=== PATIENT | female | born 1945 | race Caucasian/White ===

== ENCOUNTER 2016-11-30 16:22 | Inpatient (IN) | payer OTHER, MEDICARE ==
[~2016-11-30] VITALS: Ht 157.5 cm; Wt 69.0 kg
[~2016-11-30 16:22] MED LIST: CEPH500C3 PO; CYCL-36 PO; DIPH2%T PO; GLUCTAB PO; LEVO112T2 PO; LISI10TA PO; OMEP20TA PO; TRAM50 PO
[2016-11-30 16:30] VITALS: BP 93/57; PULSE 112; RESP 24; O2SAT 95
[2016-11-30] MEDS ORDERED: SODIUM CHLOR 0.9% 1000 ML INJ 1,000 ML IV SCH (16:48)
[2016-11-30 16:50] VITALS: RESP 18; O2SAT 97
[2016-11-30] MEDS ORDERED: SODIUM CHLORIDE 0.9% FLUSH 5 ML FLUSH IVF PRN (17:00)
--- NOTE | 2016-11-30 17:03 | PD ---
HPI Chief Complaint: generalized weakness Time Seen by Provider: 16:30 Travel History International Travel<30 days: No Contact w/Intl Traveler<30days: No Traveled to known affect area: No History of Present Illness HPI The patient is a 71-year-old female who presents to the emergency department for generalized weakness and occasional altered mental status. The daughter and stepson state that the patient has had decreasing appetite over the last several months and has fallen several times in the last several months. They then state that the patient developed occasional altered mental status. The patient was seen by her primary physician, Dr. Kim, one week ago and had outpatient laboratory evaluation and UA performed. The patient was placed on Bactrim for possible underlying bladder infection. The patient took a dose on , Friday, and a dose today, however, continues to have generalized weakness and altered mental status. The family member states that the altered mental status is intermittent and is currently resolved. The patient does complain of decreased appetite over the last several months but denies any acute abdominal pain. She does complain of occasional nausea but denies any vomiting, diarrhea, or dysuria. The patient does use a walker and wheelchair at home, and also lives with her at home. PFSH Past Medical History Arthritis: Yes (RA/OSTEO) Asthma: No Blood Disorders: No Heart Rhythm Problems: No Cancer: No Cardiovascular Problems: Yes High Cholesterol: No Chemotherapy: Yes Chest Pain: No Congestive Heart Failure: No COPD: Yes Diabetes: No Deep Vein Thrombosis: Yes Endocrine: Yes Gastrointestinal Disorders: Yes Genitourinary: No Hiatal Hernia: Yes Hypertension: Yes Immune Disorder: No Implanted Vascular Access Dvce: Yes Musculoskeletal: Yes Neurologic: No Psychiatric: No Reproductive: No Respiratory: Yes Sleep Apnea: No Thyroid Disease: Yes Past Surgical History Body Medical Devices: SILICONE UTERINE SLING, PROSTETIC BARON LENS' Eye Surgery: Yes (CATARACT) Gynecologic Surgery: Yes (UTERUS PROLAPSE) Other Surgery: Yes (SKIN ON VAGINA INFECTION ) Social History Alcohol Use: Yes (COUPLE GLASSES A DAY) Tobacco Use: No (QUIT 16 YEARS AGO) Substance Use: No Allergies-Medications (Allergen,Severity, Reaction): Coded Allergies: Heparin (Verified Allergy, Severe, Hallucinations, 07/14/16) Latex (Verified Allergy, Severe, hives, 07/14/16) Baclofen (Verified Allergy, Intermediate, RASH, 11/30/16) Reported Meds & Prescriptions Reported Meds & Active Scripts Active Reported Omeprazole 20 Mg Tab 20 Mg PO DAILY Synthroid (Levothyroxine Sodium) 112 Mcg Tab 112 Mcg PO DAILY Flexeril (Cyclobenzaprine HCl) 5 Mg Tab 5 Mg PO TID Tramadol (Tramadol HCl) 50 Mg Tab 50 Mg PO Q8H PRN Review of Systems Except as stated in HPI: all other systems reviewed are Neg General / Constitutional: No: Fever HENT: No: Lightheadedness Cardiovascular: No: Chest Pain or Discomfort Respiratory: No: Shortness of Breath Gastrointestinal: Positive: Nausea, No: Vomiting, Diarrhea, Abdominal Pain Genitourinary: No: Dysuria Musculoskeletal: Positive: Weakness Neurologic: Positive: Weakness Psychiatric: No: Substance Abuse Physical Exam Narrative GENERAL: Awake, alert, pleasant 71-year-old female who appears her stated age and is in no acute respiratory distress. SKIN: Warm and dry. HEAD: Atraumatic. Normocephalic. EYES: Pupils equal and round. Sunken orbits bilaterally. ENT: No nasal bleeding or discharge. Dry mucous membranes. NECK: Trachea midline. No JVD. CARDIOVASCULAR: Regular, tachycardic with a heart rate of 110. RESPIRATORY: No accessory muscle use. Clear to auscultation. Breath sounds equal bilaterally. GASTROINTESTINAL: Abdomen soft, non-tender, nondistended. No rebound tenderness. MUSCULOSKELETAL: Superficial varicosities lower extremities bilateral. NEUROLOGICAL: Awake and alert. No obvious cranial nerve deficits. Motor grossly within normal limits. Normal speech. Patient is oriented to person, place, month, and pattern filer, however, she had difficulty recalling the year. PSYCHIATRIC: Appropriate mood and affect; insight and judgment normal. Data Data Last Documented VS Vital Signs Date Time Temp Pulse Resp B/P Pulse Ox O2 Delivery O2 Flow Rate FiO2 11/30/16 18:02 92 18 96/52 97 Room Air Orders Electrocardiogram (11/30/16 16:48) Complete Blood Count With Diff (11/30/16 16:48) Comprehensive Metabolic Panel (11/30/16 16:48) Creatine Kinase (Cpk) (11/30/16 16:48) Troponin I (11/30/16 16:48) Thyroid Stimulating Hormone (11/30/16 16:48) Lactic Acid Sepsis Protocol (11/30/16 16:48) Urinalysis - C+S If Indicated (11/30/16 16:48) Blood Culture (11/30/16 16:48) Chest, Single Ap (11/30/16 16:48) Ct Brain W/O Iv Contrast(Rout) (11/30/16 16:48) Blood Glucose (11/30/16 16:48) Ecg Monitoring (11/30/16 16:48) Iv Access Insert/Monitor (11/30/16 16:48) Cath For Specimen (11/30/16 16:48) Oximetry (11/30/16 16:48) Sodium Chloride 0.9% Flush (Ns Flush) (11/30/16 17:00) Sodium Chlor 0.9% 1000 Ml Inj (Ns 1000 M (11/30/16 16:48) Sodium Chlorid 0.9% 500 Ml Inj (Ns 500 M (11/30/16 18:00) Us Abdomen Gallbladder (11/30/16 ) Admit Order (Ed Use Only) (11/30/16 18:48) Labs Laboratory Tests Test 11/30/16 17:00 White Blood Count 8.4 TH/MM3 Red Blood Count 3.71 MIL/MM3 Hemoglobin 12.8 GM/DL Hematocrit 36.0 % Mean Corpuscular Volume 97.0 FL Mean Corpuscular Hemoglobin 34.6 PG Mean Corpuscular Hemoglobin 35.7 % Concent Red Cell Distribution Width 13.6 % Platelet Count 247 TH/MM3 Mean Platelet Volume 8.5 FL Neutrophils (%) (Auto) 77.5 % Lymphocytes (%) (Auto) 17.6 % Monocytes (%) (Auto) 3.9 % Eosinophils (%) (Auto) 0.8 % Basophils (%) (Auto) 0.2 % Neutrophils # (Auto) 6.5 TH/MM3 Lymphocytes # (Auto) 1.5 TH/MM3 Monocytes # (Auto) 0.3 TH/MM3 Eosinophils # (Auto) 0.1 TH/MM3 Basophils # (Auto) 0.0 TH/MM3 CBC Comment DIFF FINAL Differential Comment Urine Color YELLOW Urine Turbidity CLEAR Urine pH 5.5 Urine Specific [place] 1.015 Urine Protein NEG mg/dL Urine Glucose (UA) NEG mg/dL Urine Ketones NEG mg/dL Urine Occult Blood NEG Urine Nitrite NEG Urine Bilirubin NEG Urine Urobilinogen 2.0 MG/DL Urine Leukocyte Esterase NEG Urine RBC LESS THAN 1 /hpf Urine WBC 1 /hpf Urine Hyaline Casts 1 /lpf Urine Mucus FEW /lpf Microscopic Urinalysis Comment CATH-CULT NOT IND Sodium Level 130 MEQ/L Potassium Level 4.1 MEQ/L Chloride Level 97 MEQ/L Carbon Dioxide Level 23.6 MEQ/L Anion Gap 9 MEQ/L Blood Urea Nitrogen 64 MG/DL Creatinine 2.01 MG/DL Estimat Glomerular Filtration 24 ML/MIN Rate Random Glucose 96 MG/DL Lactic Acid Level 2.0 mmol/L Calcium Level 10.8 MG/DL Total Bilirubin 1.3 MG/DL Aspartate Amino Transf 256 U/L (AST/SGOT) Alanine Aminotransferase 166 U/L (ALT/SGPT) Alkaline Phosphatase 324 U/L Total Creatine Kinase 134 U/L Troponin I LESS THAN 0.02 NG/ML Total Protein 6.6 GM/DL Albumin 3.0 GM/DL Thyroid Stimulating Hormone 1.960 uIU/ML 3rd Gen [facility] Medical Decision Making Medical Screen Exam Complete: Yes Emergency Medical Condition: Yes Medical Record Reviewed: Yes Interpretation(s) EKG reveals sinus tachycardia with a rate of 111. Inverted T-wave noted in lead 3. Last Impressions Chest X-Ray 11/30/16 1648 Signed Impressions: Service Date/Time: Wednesday, November 30, 2016 17:00 - CONCLUSION: 1. Stable basilar lung scarring. No significant effusion. No pneumothorax. Cholo Mejia MD CT of the head reveals no acute intracranial abnormalities. Laboratory Tests Test 11/30/16 17:00 White Blood Count 8.4 TH/MM3 Red Blood Count 3.71 MIL/MM3 Hemoglobin 12.8 GM/DL Hematocrit 36.0 % Mean Corpuscular Volume 97.0 FL Mean Corpuscular Hemoglobin 34.6 PG Mean Corpuscular Hemoglobin 35.7 % Concent Red Cell Distribution Width 13.6 % Platelet Count 247 TH/MM3 Mean Platelet Volume 8.5 FL Neutrophils (%) (Auto) 77.5 % Lymphocytes (%) (Auto) 17.6 % Monocytes (%) (Auto) 3.9 % Eosinophils (%) (Auto) 0.8 % Basophils (%) (Auto) 0.2 % Neutrophils # (Auto) 6.5 TH/MM3 Lymphocytes # (Auto) 1.5 TH/MM3 Monocytes # (Auto) 0.3 TH/MM3 Eosinophils # (Auto) 0.1 TH/MM3 Basophils # (Auto) 0.0 TH/MM3 CBC Comment DIFF FINAL Differential Comment Urine Color YELLOW Urine Turbidity CLEAR Urine pH 5.5 Urine Specific [place] 1.015 Urine Protein NEG mg/dL Urine Glucose (UA) NEG mg/dL Urine Ketones NEG mg/dL Urine Occult Blood NEG Urine Nitrite NEG Urine Bilirubin NEG Urine Urobilinogen 2.0 MG/DL Urine Leukocyte Esterase NEG Urine RBC LESS THAN 1 /hpf Urine WBC 1 /hpf Urine Hyaline Casts 1 /lpf Urine Mucus FEW /lpf Microscopic Urinalysis Comment CATH-CULT NOT IND Sodium Level 130 MEQ/L Potassium Level 4.1 MEQ/L Chloride Level 97 MEQ/L Carbon Dioxide Level 23.6 MEQ/L Anion Gap 9 MEQ/L Blood Urea Nitrogen 64 MG/DL Creatinine 2.01 MG/DL Estimat Glomerular Filtration 24 ML/MIN Rate Random Glucose 96 MG/DL Lactic Acid Level 2.0 mmol/L Calcium Level 10.8 MG/DL Total Bilirubin 1.3 MG/DL Aspartate Amino Transf 256 U/L (AST/SGOT) Alanine Aminotransferase 166 U/L (ALT/SGPT) Alkaline Phosphatase 324 U/L Total Creatine Kinase 134 U/L Troponin I LESS THAN 0.02 NG/ML Total Protein 6.6 GM/DL Albumin 3.0 GM/DL Thyroid Stimulating Hormone 1.960 uIU/ML 3rd Gen Differential Diagnosis Differential diagnosis includes delirium, UTI, pneumonia, subdural hemorrhage, hygroma, hyponatremia, hypocalcemia, deconditioning, ACS. Narrative Course IV was established, labs were drawn and sent, and the patient was placed on cardiac telemetry monitoring and continuous pulse oximetry monitoring. EKG was ordered and interpreted. Chest x-ray was ordered. CT the brain was ordered to rule out subdural/I hygroma. The patient was administered IV fluids. Catheter UA was sent to lab. Lactic acid and blood culture were sent to lab. Patient's lactic acid is normal at 2.0, white count is normal. Creatinine is elevated at 2.01, EMR reveals the one from November 2015 was normal. Patient's LFTs are also elevated, patient still has her gallbladder and complains of intermittent abdominal pain with decreased appetite. Therefore, formal ultrasound of the gallbladder was ordered. The patient was administered 1.5 L of fluid, heart rate improved from 110 down to 92, however, blood pressure maintained a systolic in the 90s and diastolic in the 60s. The patient was mentating normal and was sitting upright and conversational. I do not believe the patient has septic shock. UA is negative, however, patient has been treated with Bactrim for the last 3 days. Patient may have dehydration versus sepsis, however, no obvious source of infection. Therefore, no initial antibiotics were ordered. The patient has [employer] and is followed by Dr. Kim, therefore, [facility] were paged for admission. Patient will need to just his IV fluid rehydration, repeat creatinine and LFTs, an ultrasound of the gallbladder. I discussed the findings with the patient and family at bedside who are comfortable with this plan of care and disposition. I discussed the patient with Dr. Gallardo who agrees with admission/observation, however, request noncontrast CT the abdomen and pelvis. Therefore, CT the abdomen and pelvis was ordered. The oncoming physician will follow-up in regards to the CT if there are any abnormalities. Physician Communication Physician Communication The patient has [employer], therefore, [facility] were paged for 23 hour observation at 6:15 PM. I discussed patient with Dr. Gallardo who agrees with admission. Diagnosis Primary Impression: Acute kidney injury Additional Impressions: Dehydration Elevated LFTs Admitting Information Admitting Physician Requests: Observation Condition: Stable Leandro Coates MD Nov 30, 2016 17:03
[2016-11-30] MEDS ORDERED: SYNT112T PO (17:25)
[2016-11-30] MEDS ORDERED: TRAM50TA PO (17:25)
[2016-11-30] MEDS ORDERED: CYCL5TAB PO (17:25)
[2016-11-30] MEDS ORDERED: OMEP20TA PO (17:26)
[2016-11-30 17:42] LABS: AUTOMATED NEUTROPHIL # 6.5 TH/MM3 (1.8-7.7); BASOPHIL % 0.2 % (0.0-2.0); EOSINOPHIL # 0.1 TH/MM3 (0-0.4); EOSINOPHIL % 0.8 % (0.0-4.0); HEMO FLAGS DIFF FINAL; LYMPH % 17.6 % (9.0-44.0); LYMPHOCYTE # 1.5 TH/MM3 (1.0-4.8); MEAN CORPUSCULAR HEMOGLOBIN 34.6 PG (27.0-34.0); MEAN CORPUSCULAR HGB CONC 35.7 % (32.0-36.0); MONO % 3.9 % (0.0-8.0); NEUT % 77.5 % (16.0-70.0); PLATELET COUNT 247 TH/MM3 (150-450); RED BLOOD COUNT 3.71 MIL/MM3 (4.00-5.30); RED CELL DISTRIBUTION WIDTH 13.6 % (11.6-17.2); WHITE BLOOD COUNT 8.4 TH/MM3 (4.0-11.0)
--- NOTE | 2016-11-30 17:48 | RADRPT ---
EXAM DATE/TIME: 11/30/2016 17:00 [facility] COMPARISON: CHEST SINGLE AP, December 18, 2015, 12:57. INDICATIONS : Syncope. MEDICAL HISTORY : Chronic obstructive pulmonary disease. Hypertension. deep vein thrombosis SURGICAL HISTORY : None. ENCOUNTER: Initial ACUITY: 1 day PAIN SCORE: Non-responsive. LOCATION: Bilateral chest FINDINGS: Colonic interposed between right hemidiaphragm and liver, stable. No new infiltrate. Stable basilar s carring in the lungs. No pneumothorax. Heart size within normal limits. CONCLUSION: 1. Stable basilar lung scarring. No significant effusion. No pneumothorax. Cholo Mejia MD on November 30, 2016 at 17:45 Board Certified Radiologist. This report was verified electronically.
[2016-11-30 17:53] LABS: BLOOD, URINE NEG (NEG); COMMENT (UR) CATH-CULT NOT IND; CULTURE IF INDICATED CATH CULTURE NOT IND; GLUCOSE,URINE NEG (NEG); HYALINE CAST, URINE 1 /lpf (RARE); KETONE, URINE NEG (NEG); MUCUS URINE FEW /lpf (OCC); NITRITE,URINE NEG (NEG); PH, URINE 5.5 (5.0-8.5); URINE COLOR YELLOW (YELLW/STRAW)
--- NOTE | 2016-11-30 17:53 | RADRPT ---
EXAM DATE/TIME: 11/30/2016 17:31 [facility] COMPARISON: No previous studies available for comparison. INDICATIONS : Confusion and weakness. RADIATION DOSE: 56.35 CTDIvol (mGy) MEDICAL HISTORY : Hypertension. Deep venous thrombosis. Chronic obstructive pulmonary disease. SURGICAL HISTORY : None. ENCOUNTER: Initial ACUITY: 1 day PAIN SCALE: Non-responsive LOCATION: cranial TECHNIQUE: Multiple contiguous axial images were obtained of the head. Using automated exposure control and adj ustment of the mA and/or kV according to patient size, radiation dose was kept as low as reasonably a chievable to obtain optimal diagnostic quality images. FINDINGS: CEREBRUM: The ventricles are normal for age. No evidence of midline shift, mass lesion, hemorrhage or acute in farction. No extra-axial fluid collections are seen. POSTERIOR FOSSA: The cerebellum and brainstem are intact. The 4th ventricle is midline. The cerebellopontine angle i s unremarkable. EXTRACRANIAL: The visualized portion of the orbits is intact. SKULL: The calvaria is intact. No evidence of skull fracture. CONCLUSION: 1. No acute intracranial abnormalities. Cholo Mejia MD on November 30, 2016 at 17:51 Board Certified Radiologist. This report was verified electronically.
[2016-11-30 17:57] LABS: ANION GAP 9 MEQ/L (5-15); AST (GOT) 256 U/L (15-37); BICARBONATE 23.6 MEQ/L (21.0-32.0); BLOOD UREA NITROGEN 64 MG/DL (7-18); CHLORIDE 97 MEQ/L (98-107); GLOMERULAR FILTRATION RATE 24 ML/MIN (>89); POTASSIUM 4.1 MEQ/L (3.5-5.1); SODIUM (NA) 130 MEQ/L (136-145)
[2016-11-30] MEDS ORDERED: SODIUM CHLORID 0.9% 500 ML INJ 500 ML IV ONE (18:00)
[2016-11-30 18:02] VITALS: BP 96/52; PULSE 92; RESP 18; O2SAT 97
[2016-11-30 18:07] LABS: ALKALINE PHOSPHATASE 324 U/L (45-117); ALT (GPT) 166 U/L (10-53); CREATINE KINASE 134 U/L (26-192); TOTAL BILIRUBIN ADULT 1.3 MG/DL (0.2-1.0)
--- NOTE | 2016-11-30 19:10 | HHI.HP ---
HPI Service [facility] Primary Care Physician Nikhil Kim, DO Admission Diagnosis acute kidney injury, dehydration, elevated liver function test Diagnoses: (1) Generalized weakness Diagnosis: Principal (2) BEVERLY (acute kidney injury) Diagnosis: Principal (3) Dehydration Diagnosis: Principal (4) UTI (urinary tract infection) Diagnosis: Principal (5) Elevated LFTs Diagnosis: Principal Travel History International Travel<30 Days: No Contact w/Intl Traveler <30 Da: No Traveled to Known Affected Are: No History of Present Illness This is a 71-year-old female with a PMH of Rheumatoid Arthritis, Osteoporosis and Hypothyroidism who was brought to the ER secondary to generalized weakness and intermittent confusion noted by Daughter. Per Daughter pt was seen by PCP for weakness and recurrent falls, had outpatient lab work w/ U/a + for UTI and started on Bactrim. Per Daughter, pt started antibiotics on w/ minimal improvement in weakness and confusion. Daughter notes decreased PO intake over the last 1-2 months. On arrival, BP 93/57, HR 112, O2 sat 95% on RA , Afebrile. Currently BP 96/52, HR 92. Na 130. Creatinine 2.01, previously 0.63 on 12/18/15. LFTs elevated, AST 256, ALT 166, ALP 324. Total bili 1.3. Calcium 10.8. Troponin negative. Lactic Acid normal. UA negative. CXR was stable basilar lung scarring no acute findings. CT Head with no acute findings. Gallbladder US and CT Abd/Pelvis ordered in ER, currently pending. S /p Blood Cultures. Review of Systems Except as stated in HPI: all other systems reviewed are Neg ROS: 14 point review of systems otherwise negative. Past Family Social History Past Medical History PMH: Rheumatoid Arthritis, Osteoporosis and Hypothyroidism Past Surgical History PAST SURGICAL HISTORY: Uterine Sling, Cataract Surgery Allergies: Coded Allergies: Heparin (Verified Allergy, Severe, Hallucinations, 07/14/16) Latex (Verified Allergy, Severe, hives, 07/14/16) Baclofen (Verified Allergy, Intermediate, RASH, 11/30/16) Family History PAST FAMILY HISTORY: Reviewed. No h/o DM or CAD Social History PAST SOCIAL HISTORY: Drinks daily, few glasses. Negative for tobacco or drugs. Physical Exam Vital Signs Vital Signs Date Time Temp Pulse Resp B/P Pulse Ox O2 Delivery O2 Flow Rate FiO2 11/30/16 18:02 92 18 96/52 97 Room Air 11/30/16 16:50 18 97 Room Air 11/30/16 16:45 17 97 Room Air 11/30/16 16:30 112 24 93/57 95 Room Air Physical Exam PE: GENERAL: Elderly female in no acute distress. HEENT: PERRLA, EOMI. No scleral icterus or conjunctival pallor. No lid lag or facial droop. Dry mucous membranes. CARDIOVASCULAR: Regular rate and rhythm. No obvious murmurs to auscultation. No chest tenderness to palpation. RESPIRATORY: No obvious rhonchi or wheezing. Clear to auscultation. Breath sounds equal bilaterally. GASTROINTESTINAL: Abdomen soft, non-tender, nondistended. BS normal. MUSCULOSKELETAL: Extremities without clubbing, cyanosis, or edema. No obvious deformities. NEUROLOGICAL: Awake, alert and oriented to person, place but cannot remember year. No focal neurologic deficits. Moving both upper and lower extremities spontaneously. Laboratory Laboratory Tests Test 11/30/16 17:00 White Blood Count 8.4 Red Blood Count 3.71 Hemoglobin 12.8 Hematocrit 36.0 Mean Corpuscular Volume 97.0 Mean Corpuscular Hemoglobin 34.6 Mean Corpuscular Hemoglobin 35.7 Concent Red Cell Distribution Width 13.6 Platelet Count 247 Mean Platelet Volume 8.5 Neutrophils (%) (Auto) 77.5 Lymphocytes (%) (Auto) 17.6 Monocytes (%) (Auto) 3.9 Eosinophils (%) (Auto) 0.8 Basophils (%) (Auto) 0.2 Neutrophils # (Auto) 6.5 Lymphocytes # (Auto) 1.5 Monocytes # (Auto) 0.3 Eosinophils # (Auto) 0.1 Basophils # (Auto) 0.0 CBC Comment DIFF FINAL Differential Comment Urine Color YELLOW Urine Turbidity CLEAR Urine pH 5.5 Urine Specific [place] 1.015 Urine Protein NEG Urine Glucose (UA) NEG Urine Ketones NEG Urine Occult Blood NEG Urine Nitrite NEG Urine Bilirubin NEG Urine Urobilinogen 2.0 Urine Leukocyte Esterase NEG Urine RBC LESS THAN 1 Urine WBC 1 Urine Hyaline Casts 1 Urine Mucus FEW Microscopic Urinalysis Comment CATH-CULT NOT IND Sodium Level 130 Potassium Level 4.1 Chloride Level 97 Carbon Dioxide Level 23.6 Anion Gap 9 Blood Urea Nitrogen 64 Creatinine 2.01 Estimat Glomerular Filtration 24 Rate Random Glucose 96 Lactic Acid Level 2.0 Calcium Level 10.8 Total Bilirubin 1.3 Aspartate Amino Transf 256 (AST/SGOT) Alanine Aminotransferase 166 (ALT/SGPT) Alkaline Phosphatase 324 Total Creatine Kinase 134 Troponin I LESS THAN 0.02 Total Protein 6.6 Albumin 3.0 Thyroid Stimulating Hormone 1.960 3rd Gen Date/Time Procedure Status Source Growth 11/30/16 17:00 Aerobic Blood Culture Received Blood Peripheral Pending 11/30/16 17:00 Anaerobic Blood Culture Received Blood Peripheral Pending Result Diagram: 11/30/16 1700 11/30/16 170 Assessment and Plan Problem List: (1) Generalized weakness ICD Code: R53.1 Status: Acute (2) BEVERLY (acute kidney injury) ICD Code: N17.9 Status: Acute (3) Dehydration ICD Code: E86.0 Status: Acute (4) Hypercalcemia ICD Code: E83.52 Status: Acute (5) UTI (urinary tract infection) ICD Code: N39.0 Status: Acute (6) Elevated LFTs ICD Code: R94.5 Status: Acute Assessment and Plan A/P: 1. BEVERLY: Creatinine 2.01, previously 0.63 on 12/18/15, U/a negative for UTI, however on Bactrim since per PCP for UTI. IVF for hydration, repeat labs in am. 2. UTI: U/a currently negative, however possibly due to recent antibiotic use , s/p Blood Cultures in ER, will start on Cipro IV for empiric treatment of persistent UTI despite negative U/a. 3. Dehydration: Secondary to above, decreased PO intake per Daughter. +dry mucous membranes on exam, BEVERLY, hypercalcemia. IVF for hydration. Repeat labs in am. 4. Hypercalcemia: Ca 10.8, secondary to above. IVF, repeat Ca in am. 5. Generalized Weakness: w/ recurrent falls x1-2 months per family, possibly related to underlying UTI/infection. Consult PT for shaan/tx. 6. Elevated LFTs: AST 256, ALT 166, ALP 324, Total Bili 1.3. Gallbladder US and CT Abd/Pelvis ordered in ER, currently pending. Will follow up on results once available. 7. DVT Prophylaxis: SCD/Teds. 8. Social work for d/c planning as needed. 9. Case discussed w/ ER physician at length. Physician Certification 2 Midnight Certification Type: Admission for Inpatient Services Order for Inpatient Services The services are ordered in accordance with Medicare regulations or non- Medicare payer requirements, as applicable. In the case of services not specified as inpatient-only, they are appropriately provided as inpatient services in accordance with the 2-midnight benchmark. Estimated LOS (days): 2 days is the estimated time the patient will need to remain in the hospital, assuming treatment plan goals are met and no additional complications. Post-Hospital Plan: Not yet determined Morena Rea MD Nov 30, 2016 19:10
[2016-11-30] MEDS: SODIUM CHLOR 0.9% 1000 ML INJ 1,000 ML IV SCH ×2 (19:12→22:06)
[2016-11-30] MEDS ORDERED: SODIUM CHLORIDE 0.9% FLUSH 5 ML FLUSH FLUSH PRN ×2 (19:15)
[2016-11-30] MEDS ORDERED: ACETAMINOPHEN 325 MG TAB PO PRN ×2 (19:15)
[2016-11-30] MEDS ORDERED: ONDANSETRON HCL 4 MG/2 ML VIAL IVP PRN (19:15)
[2016-11-30] MEDS ORDERED: BISACODYL 10 MG SUPP PR PRN (19:15)
[2016-11-30] MEDS: ACETAMINOPHEN/HYDROcodone 325 MG/5 MG TAB PO PRN (19:42)
--- NOTE | 2016-11-30 20:11 | RADRPT ---
EXAM DATE/TIME: 11/30/2016 19:52 [facility] COMPARISON: No previous studies available for comparison. INDICATIONS : Nausea. ORAL CONTRAST: No oral contrast ingested. RADIATION DOSE: 12.40 CTDIvol (mGy) MEDICAL HISTORY : Cardiovascular disease. Hypertension. Deep venous thrombosis.COPD. Hiatal hernia. SURGICAL HISTORY : Uterus prolapse surgery. ENCOUNTER: Initial ACUITY: 1 day PAIN SCALE: 0/10 LOCATION: abdomen TECHNIQUE: Volumetric scanning of the abdomen and pelvis was performed. Using automated exposure control and ad justment of the mA and/or kV according to patient size, radiation dose was kept as low as reasonably achievable to obtain optimal diagnostic quality images. FINDINGS: There is subsegmental airspace disease at the right lung base, incompletely evaluated. Liver is enlarged to 26 cm in length. Colon is interposed between the right hemidiaphragm and liver. Spleen contains calcified granulomata. No focal abnormality is seen in the adrenals, kidneys or pancr eas. There is no free fluid. No free air. No bowel obstruction. Pessary present inferiorly. No acute bony abnormalities. Previous left-sided pelvic fractures, healed. CONCLUSION: 1. No acute findings within the abdomen and pelvis. Liver enlarged to 26 cm in length. Pessary present in the lower pelvis. Remote healed left pelvic fra ctures. Remote granulomatous disease. Cholo Mejia MD on November 30, 2016 at 20:01 Board Certified Radiologist. This report was verified electronically.
--- NOTE | 2016-11-30 20:23 | RADRPT ---
EXAM DATE/TIME: 11/30/2016 18:56 [facility] COMPARISON: No previous studies available for comparison. INDICATIONS : Nausea and vomiting. MEDICAL HISTORY : Chronic obstructive pulmonary disease. Hypertension. Deep venous thrombosis. Thyroid disease. Hiatal hernia. Rheumatoid arthritis. Chemotherapy. SURGICAL HISTORY : Uterine prolapse repair. Cataract removal. ENCOUNTER: Initial ACUITY: 1 day PAIN SCORE: 6/10 LOCATION: Right upper quadrant MEASUREMENTS: LIVER: 15.8 cm length COMMON DUCT: Non-visualized RIGHT KIDNEY: 12.0 x 5.5 x 6.2 cm FINDINGS: Liver has a heterogeneous appearance with a palpable 2.3 cm hemangioma in the right lobe. Liver is en larged. Common bile duct not clearly visualized. Gallbladder is distended with gallstones present. Ga llbladder wall is thickened up to 7 mm. Right kidney is echogenic characteristic of medical renal dis ease. No hydronephrosis. No free fluid. CONCLUSION: 1. Heterogeneous, enlarged liver characteristic of hepatocellular dysfunction or mild fatty infiltrat ion. Probable hemangioma in right lobe. Distended gallbladder with multiple gallstones and some gallbladder wall thickening. Common bile duct not clearly visualized. Cholo Mejia MD on November 30, 2016 at 20:15 Board Certified Radiologist. This report was verified electronically.
[2016-11-30] MEDS: SODIUM CHLORIDE 0.9% FLUSH 5 ML FLUSH FLUSH SCH ×2 (21:00→22:04)
[2016-11-30 21:08] VITALS: BP 95/56; PULSE 93; RESP 19; TEMP 98.2; O2SAT 98
[2016-11-30] MEDS: CIPROFLOXACIN 400 MG PREMIX 200 ML IV SCH (22:04)
[2016-12-01] VITALS (7 sets, daily range): BP systolic 92–115; BP diastolic 53–68; PULSE 71–111; RESP 17–19; TEMP 97.1–98; O2SAT 95–98
--- NOTE | 2016-12-01 00:14 | RADRPT ---
EXAM DATE/TIME: 11/30/2016 23:44 [facility] COMPARISON: CT ABDOMEN & PELVIS W/O CONTRAST, November 30, 2016, 19:52. US ABDOMEN - GALLBLADDER, November 30 017, 18:56. INDICATIONS : Increased BUN and Creatinine. MEDICAL HISTORY : Chronic obstructive pulmonary disease. Hypertension. Deep venous thrombosis. Thyroid disease. Hiatal hernia. Rheumatoid arthritis. Chemotherapy. SURGICAL HISTORY : Uterine prolapse repair. Cataract removal. ENCOUNTER: Subsequent ACUITY: 1 day PAIN SCORE: 5/10 LOCATION: Bilateral flank MEASUREMENTS: RIGHT KIDNEY: 11.3 x 5.4 x 5.3 cm LEFT KIDNEY: 11.6 x 5.9 x 6.2 cm FINDINGS: RIGHT KIDNEY: Renal cortex is normal in thickness and echotexture. No hydronephrosis, stone, or mass. LEFT KIDNEY: Renal cortex is normal in thickness and echotexture. No hydronephrosis, stone, or mass. BLADDER: Within normal limits given the degree of distension. Enlarged liver with suspected scattered masses. CONCLUSION: Ultrasound appearance of the kidneys and urinary bladder within normal limits. No obstructive uropath y or other acute abnormality demonstrated. Liver is massively enlarged and scattered nonspecific hepa tic masses are suspected. Nikhil Tim MD on December 01, 2016 at 0:09 Board Certified Radiologist. This report was verified electronically.
[2016-12-01] MEDS: SODIUM CHLOR 0.9% 1000 ML INJ 1,000 ML IV SCH ×6 (05:07→20:30)
[2016-12-01 05:56] LABS: AUTOMATED NEUTROPHIL # 5.1 TH/MM3 (1.8-7.7); BASOPHIL % 0.3 % (0.0-2.0); EOSINOPHIL # 0.1 TH/MM3 (0-0.4); EOSINOPHIL % 0.8 % (0.0-4.0); HEMATOCRIT 35.5 % (35.0-46.0); HEMO FLAGS DIFF FINAL; LYMPH % 18.5 % (9.0-44.0); LYMPHOCYTE # 1.3 TH/MM3 (1.0-4.8); MEAN CELL VOLUME 97.6 FL (80.0-100.0); MEAN CORPUSCULAR HEMOGLOBIN 33.2 PG (27.0-34.0); MONO % 5.9 % (0.0-8.0); NEUT % 74.5 % (16.0-70.0); PLATELET COUNT 224 TH/MM3 (150-450); RED BLOOD COUNT 3.64 MIL/MM3 (4.00-5.30); RED CELL DISTRIBUTION WIDTH 13.9 % (11.6-17.2); WHITE BLOOD COUNT 6.8 TH/MM3 (4.0-11.0)
[2016-12-01] MEDS: LEVOTHYROXINE SODIUM 112 MCG TAB PO SCH (06:10)
[2016-12-01 06:28] LABS: ALKALINE PHOSPHATASE 286 U/L (45-117); ALT (GPT) 143 U/L (10-53); ANION GAP 11 MEQ/L (5-15); AST (GOT) 203 U/L (15-37); BICARBONATE 22.3 MEQ/L (21.0-32.0); BLOOD UREA NITROGEN 46 MG/DL (7-18); CHLORIDE 102 MEQ/L (98-107); GLOMERULAR FILTRATION RATE 30 ML/MIN (>89); SODIUM (NA) 135 MEQ/L (136-145); TOTAL BILIRUBIN ADULT 1.6 MG/DL (0.2-1.0)
[2016-12-01] MEDS: SODIUM CHLORIDE 0.9% FLUSH 5 ML FLUSH FLUSH SCH ×4 (09:00→20:30)
[2016-12-01] MEDS: PANTOPRAZOLE SOD 20 MG DELAYED RELEASE TAB PO SCH (09:17)
--- NOTE | 2016-12-01 10:18 | HHI.PR ---
Subjective Remarks Follow up for generalized weakness, BEVERLY, elevated LFTs, UTI. The patient reports diffuse upper abdominal pain, worse at the epigastric area and RUQ, no nausea/vomiting. Had a normal BM this morning. Denies fevers/chills. She admits to generalized weakness. The patient daughter is at bedside, states the patient is minimally improved compared to yesterday but still confused at times and with significant weakness. The daughter has been talking with family and agrees the patient may need rehab placement. Currently the patient lives at home with her who is also elderly and frail. Objective Vitals Vital Signs Date Time Temp Pulse Resp B/P Pulse Ox O2 Delivery O2 Flow Rate FiO2 12/01/16 07:55 98.0 111 17 95/57 95 12/01/16 04:03 97.9 110 19 98/53 97 12/01/16 01:16 98.0 90 19 96/54 98 11/30/16 21:08 98.2 93 19 95/56 98 11/30/16 18:02 92 18 96/52 97 Room Air 11/30/16 16:50 18 97 Room Air 11/30/16 16:45 17 97 Room Air 11/30/16 16:30 112 24 93/57 95 Room Air Result Diagram: 12/01/16 0514 12/01/16 0514 Imaging Last Impressions Head CT 11/30/161647 Signed Impressions: Service Date/Time: Wednesday, November 30, 2016 17:31 - CONCLUSION: 1. No acute intracranial abnormalities. Cholo Mejia MD Chest X-Ray 11/30/168 Signed Impressions: Service Date/Time: Wednesday, November 30, 2016 17:00 - CONCLUSION: 1. Stable basilar lung scarring. No significant effusion. No pneumothorax. Cholo Mejia MD Renal Ultrasound 11/30/16 0000 Signed Impressions: Service Date/Time: Wednesday, November 30, 2016 23:44 - CONCLUSION: Ultrasound appearance of the kidneys and urinary bladder within normal limits. No obstructive uropathy or other acute abnormality demonstrated. Liver is massively enlarged and scattered nonspecific hepatic masses are suspected. Nikhil Tim MD Gall Bladder Ultrasound 11/30/16 0000 Signed Impressions: Service Date/Time: Wednesday, November 30, 2016 18:56 - CONCLUSION: 1. Heterogeneous, enlarged liver characteristic of hepatocellular dysfunction or mild fatty infiltration. Probable hemangioma in right lobe. Distended gallbladder with multiple gallstones and some gallbladder wall thickening. Common bile duct not clearly visualized. Cholo Mejia MD Abdomen/Pelvis CT 11/30/16 0000 Signed Impressions: Service Date/Time: Wednesday, November 30, 2016 19:52 - CONCLUSION: 1. No acute findings within the abdomen and pelvis. Liver enlarged to 26 cm in length. Pessary present in the lower pelvis. Remote healed left pelvic fractures. Remote granulomatous disease. Cholo Mejia MD Objective Remarks GENERAL: Well-developed elderly female patient in NAD. Pleasantly confused. SKIN: Warm and dry. HEAD: Atraumatic. Normocephalic. EYES: Pupils equal and round. No scleral icterus. No injection or drainage. ENT: No nasal bleeding or discharge. Mucous membranes slightly dry. NECK: Trachea midline. CARDIOVASCULAR: Regular rate and rhythm. No murmur appreciated. RESPIRATORY: No accessory muscle use. Clear to auscultation. Breath sounds equal bilaterally. GASTROINTESTINAL: Abdomen soft, nondistended, epigastric and RUQ TTP. Palpable liver. Normoactive bowel sounds x4. MUSCULOSKELETAL: Extremities without clubbing, cyanosis, or edema. No obvious deformities. NEUROLOGICAL: Awake and alert. No obvious cranial nerve deficits. Motor grossly within normal limits. Normal speech. PSYCHIATRIC: Appropriate mood and affect; insight and judgment fair. Medications and IVs Current Medications Medications (Trade) Dose Ordered Sig/Roland Route Start Time Stop Time Status Last Admin IV Flush 2 ml 2 ml UNSCH PRN IVF 11/30/16 17:00 (NS 1000 ml Inj) 1,000 ml @ 100 mls/hr Q10H IV 11/30/16 19:07 11/30/16 22:06 (NS Flush) 2 ml UNSCH PRN FLUSH 11/30/16 19:15 (NS Flush) 2 ml BID FLUSH 11/30/16 21:00 11/30/16 22:04 (Zofran Inj) 4 mg Q6H PRN IVP 11/30/16 19:15 (Dulcolax Supp) 10 mg DAILY PRN [place] 11/30/16 19:15 11/30/16 22:29 (Tylenol) 650 mg Q6H PRN PO 11/30/16 19:15 ([place] 5-325 Mg) 1 tab Q4H PRN PO 11/30/16 19:15 11/30/16 19:42 (Morphine Inj) 2 mg Q3H PRN IV 11/30/16 19:15 (Synthroid) 112 mcg DAILY@06 PO 12/01/16 06:00 12/01/16 06:10 Pantoprazole Sodium 20 mg 20 mg DAILY PO 12/01/16 09:00 12/01/16 09:17 (NS 1000 ml Inj) 1,000 ml @ 100 mls/hr Q10H IV 11/30/16 19:12 (NS Flush) 2 ml UNSCH PRN FLUSH 11/30/16 19:15 (NS Flush) 2 ml BID FLUSH 11/30/16 21:00 Acetaminophen 650 mg 650 mg Q4H PRN PO 11/30/16 19:15 (Cipro 400 Mg Premix) 200 ml @ 200 mls/hr Q24H IV 11/30/16 21:00 11/30/16 22:04 (Flu (Quadrivalent) Vaccine Inj) 0.5 ml ONCE ONCE IM 12/02/16 10:00 12/02/16 10:01 A/P Problem List: (1) Generalized weakness ICD Code: R53.1 Status: Acute (2) BEVERLY (acute kidney injury) ICD Code: N17.9 Status: Acute (3) Dehydration ICD Code: E86.0 Status: Acute (4) Hypercalcemia ICD Code: E83.52 Status: Acute (5) UTI (urinary tract infection) ICD Code: N39.0 Status: Acute (6) Elevated LFTs ICD Code: R94.5 Status: Acute Assessment and Plan 71-year-old female with a PMH of Rheumatoid Arthritis, Osteoporosis and Hypothyroidism who was brought to the ER secondary to generalized weakness and intermittent confusion noted by Daughter. Cholelithiasis, Elevated LFTs: with RUQ abdominal pain. Possible cholecystitis vs choledocholithiasis. Imaging and Labs Reviewed- Gall bladder US showed Distended gallbladder with multiple gallstones and some gallbladder wall thickening; CBD not clearly visualized. Total bilirubin 1.3, AST 203, ALT 143. CT abdomen with no acute findings, enlarged liver 26cm. Renal U/S showed Liver is massively enlarged and scattered nonspecific hepatic masses are suspected. -Consult general surgery, discussed with Dr. Small, may proceed with cholecystectomy later this week -Consult gastroenterology -Plan for MRCP today -Clear liquid diet -monitor LFTs BEVERLY: Creatinine 2.01, previously 0.63 on 12/18/15, U/a negative for UTI, however on Bactrim since Thurs per PCP for UTI. IVF for hydration, repeat labs show slight improvement, Cr 1.65 today. UTI, Failed Outpatient: U/a currently negative, however possibly due to recent antibiotic use, s/p Blood Cultures in ER, started on Cipro IV for empiric treatment of persistent UTI despite negative U/a. Dehydration: Secondary to above, decreased PO intake per Daughter. +dry mucous membranes on exam, BEVERLY, hypercalcemia. IVF for hydration. Repeat labs improving, continue to monitor. Hypercalcemia: Ca 10.8, secondary to above. IVF, repeat Ca 10.4 today, continue to monitor. Generalized Weakness: w/ recurrent falls x1-2 months per family, possibly related to underlying UTI/infection. Consult PT for shaan/tx, may need rehab. DVT Prophylaxis: SCD/Teds. Written by Luci Perera, acting as scribe for Dr. Jordan on 12/01/16 at 10:15. The documentation accurately reflects the work performed [id number] by me Dr. Jordan on 12/01/16 at 10:15. Luci Perera PA-C Dec 01, 2016 10:18 Zofia Jordan MD Dec 01, 2016 17:43
--- NOTE | 2016-12-01 11:28 | PD.CONS ---
HPI History of Present Illness This is a 71 year old female being seen for GI consult due to upper abdominal pain in epigastric and RUQ abdominal region. Patient is a poor historian. Per H& P, patient was initially brought to the ER by her daughter due to increased weakness and intermittent confusion. Has a history of RA, osteoporosis, and hypothyroidism. Reports she had a rectal suppository last night and had a BM this morning. Today she reports abdominal pain in RUQ. Denies blood in stool. No nausea or vomiting. No diarrhea. Abdominal CT completed, with no acute findings within the abdomen or pelvis. Liver enlarged to 26 cm in length. Gallbladder US--Distended gallbladder with multiple gallstones and some gallbladder wall thickening. CBD not clearly visualized. (Emmie Hines) PFSH Past Medical History -Rheumatoid Arthritis -Osteoporosis -Hypothyroidism Past Surgical History PAST SURGICAL HISTORY: -Uterine Sling -Cataract Surgery (Emmie Hines) Coded Allergies: Heparin (Verified Allergy, Severe, Hallucinations, 07/14/16) Latex (Verified Allergy, Severe, hives, 07/14/16) Baclofen (Verified Allergy, Intermediate, RASH, 11/30/16) Medications Current Medications Medications (Trade) Dose Ordered Sig/Roland Route PRN Reason Start Time Stop Time Status Last Admin Dose Admin IV Flush 2 ml 2 ml UNSCH PRN IVF FLUSH AFTER USING IV ACCESS 11/30/16 17:00 Sodium Chloride (NS 1000 ml Inj) 1,000 ml @ 100 mls/hr Q10H IV 11/30/16 19:07 11/30/16 22:06 IV Flush (NS Flush) 2 ml UNSCH PRN FLUSH FLUSH AFTER USING IV ACCESS 11/30/16 19:15 IV Flush (NS Flush) 2 ml BID FLUSH 11/30/16 21:00 11/30/16 22:04 Ondansetron HCl (Zofran Inj) 4 mg Q6H PRN IVP NAUSEA OR VOMITING 11/30/16 19:15 Bisacodyl (Dulcolax Supp) 10 mg DAILY PRN AR CONSTIPATION 11/30/16 19:15 11/30/16 22:29 Acetaminophen (Tylenol) 650 mg Q6H PRN PO FEVER/PAIN SCALE 1 TO 2 2/11/17 19:15 Acetaminophen/ Hydrocodone Bitart ([place] 5-325 Mg) 1 tab Q4H PRN PO PAIN SCALE 3 TO 5 11/30/16 19:15 11/30/16 19:42 Morphine Sulfate (Morphine Inj) 2 mg Q3H PRN IV Pain 6-10 11/30/16 19:15 Levothyroxine Sodium (Synthroid) 112 mcg DAILY@06 PO 12/01/16 06:00 12/01/16 06:10 Pantoprazole Sodium 20 mg 20 mg DAILY PO 12/01/16 09:00 12/01/16 09:17 Sodium Chloride (NS 1000 ml Inj) 1,000 ml @ 100 mls/hr Q10H IV 11/30/16 19:12 IV Flush (NS Flush) 2 ml UNSCH PRN FLUSH FLUSH AFTER USING IV ACCESS 11/30/16 19:15 IV Flush (NS Flush) 2 ml BID FLUSH 11/30/16 21:00 Acetaminophen 650 mg 650 mg Q4H PRN PO TEMP > 100.4 11/30/16 19:15 Ciprofloxacin/ Dextrose (Cipro 400 Mg Premix) 200 ml @ 200 mls/hr Q24H IV 11/30/16 21:00 11/30/16 22:04 Influenza Virus Vaccine (Flu (Quadrivalent) Vaccine Inj) 0.5 ml ONCE ONCE IM 12/02/16 10:00 12/02/16 10:01 Family History PAST FAMILY HISTORY: -Cholecystitis Social History PAST SOCIAL HISTORY: -ETOH daily "few glasses" -No tobacco -No illicit drug use. (Emmie Hines) Review of Systems Constitutional: COMPLAINS OF: Diaphoretic episodes, Chills Endocrine: DENIES: Polyuria Eyes: COMPLAINS OF: Photosensitivity, DENIES: Blurred vision, Double Vision Ears, nose, mouth, throat: DENIES: Hearing loss, Vertigo, Oral lesions, Throat pain, Hoarseness Respiratory: DENIES: Cough, Wheezing, Hemoptysis, Sputum production, Shortness of breath Cardiovascular: DENIES: Chest pain, Palpitations, Syncope, Lower Extremity Edema Gastrointestinal: COMPLAINS OF: Abdominal pain (RUQ, epigastric), DENIES: Black stools, Bloody stools, Constipation, Diarrhea, Nausea, Vomiting, Difficulty Swallowing, Anorexia, Heartburn, Hematemesis Genitourinary: DENIES: Urinary frequency, Urinary incontinence, Urgency, Hematuria, Dysuria, Nocturia Musculoskeletal: DENIES: Joint pain Integumentary: DENIES: Pruritus, Rash Hematologic/lymphatic: DENIES: Bruising Neurologic: DENIES: Headache Psychiatric: COMPLAINS OF: Confusion, DENIES: Anxiety (Emmie Hines) GI Exam Vitals I&O Vital Signs Date Time Temp Pulse Resp B/P Pulse Ox O2 Delivery O2 Flow Rate FiO2 12/01/16 07:55 98.0 111 17 95/57 95 12/01/16 04:03 97.9 110 19 98/53 97 12/01/16 01:16 98.0 90 19 96/54 98 11/30/16 21:08 98.2 93 19 95/56 98 11/30/16 18:02 92 18 96/52 97 Room Air 11/30/16 16:50 18 97 Room Air 11/30/16 16:45 17 97 Room Air 11/30/16 16:30 112 24 93/57 95 Room Air Imaging Last Impressions Head CT 11/30/161647 Signed Impressions: Service Date/Time: Wednesday, November 30, 2016 17:31 - CONCLUSION: 1. No acute intracranial abnormalities. Cholo Mejia MD Chest X-Ray 11/30/161647 Signed Impressions: Service Date/Time: Wednesday, November 30, 2016 17:00 - CONCLUSION: 1. Stable basilar lung scarring. No significant effusion. No pneumothorax. Cholo Mejia MD Renal Ultrasound 11/30/16 0000 Signed Impressions: Service Date/Time: Wednesday, November 30, 2016 23:44 - CONCLUSION: Ultrasound appearance of the kidneys and urinary bladder within normal limits. No obstructive uropathy or other acute abnormality demonstrated. Liver is massively enlarged and scattered nonspecific hepatic masses are suspected. Nikhil Tim MD Gall Bladder Ultrasound 11/30/16 0000 Signed Impressions: Service Date/Time: Wednesday, November 30, 2016 18:56 - CONCLUSION: 1. Heterogeneous, enlarged liver characteristic of hepatocellular dysfunction or mild fatty infiltration. Probable hemangioma in right lobe. Distended gallbladder with multiple gallstones and some gallbladder wall thickening. Common bile duct not clearly visualized. Cholo Mejia MD Abdomen/Pelvis CT 11/30/16 0000 Signed Impressions: Service Date/Time: Wednesday, November 30, 2016 19:52 - CONCLUSION: 1. No acute findings within the abdomen and pelvis. Liver enlarged to 26 cm in length. Pessary present in the lower pelvis. Remote healed left pelvic fractures. Remote granulomatous disease. Cholo Mejia MD Laboratory Test 11/30/16 12/01/16 17:00 05:14 White Blood Count 8.4 TH/MM3 6.8 TH/MM3 Red Blood Count 3.71 MIL/MM3 3.64 MIL/MM3 Hemoglobin 12.8 GM/DL 12.1 GM/DL Hematocrit 36.0 % 35.5 % Mean Corpuscular Volume 97.0 FL 97.6 FL Mean Corpuscular Hemoglobin 34.6 PG 33.2 PG Mean Corpuscular Hemoglobin 35.7 % 34.0 % Concent Red Cell Distribution Width 13.6 % 13.9 % Platelet Count 247 TH/MM3 224 TH/MM3 Mean Platelet Volume 8.5 FL 8.3 FL Neutrophils (%) (Auto) 77.5 % 74.5 % Lymphocytes (%) (Auto) 17.6 % 18.5 % Monocytes (%) (Auto) 3.9 % 5.9 % Eosinophils (%) (Auto) 0.8 % 0.8 % Basophils (%) (Auto) 0.2 % 0.3 % Neutrophils # (Auto) 6.5 TH/MM3 5.1 TH/MM3 Lymphocytes # (Auto) 1.5 TH/MM3 1.3 TH/MM3 Monocytes # (Auto) 0.3 TH/MM3 0.4 TH/MM3 Eosinophils # (Auto) 0.1 TH/MM3 0.1 TH/MM3 Basophils # (Auto) 0.0 TH/MM3 0.0 TH/MM3 CBC Comment DIFF FINAL DIFF FINAL Differential Comment Urine Color YELLOW Urine Turbidity CLEAR Urine pH 5.5 Urine Specific [place] 1.015 Urine Protein NEG mg/dL Urine Glucose (UA) NEG mg/dL Urine Ketones NEG mg/dL Urine Occult Blood NEG Urine Nitrite NEG Urine Bilirubin NEG Urine Urobilinogen 2.0 MG/DL Urine Leukocyte Esterase NEG Urine RBC LESS THAN 1 /hpf Urine WBC 1 /hpf Urine Hyaline Casts 1 /lpf Urine Mucus FEW /lpf Microscopic Urinalysis Comment CATH-CULT NOT IND Sodium Level 130 MEQ/L 135 MEQ/L Potassium Level 4.1 MEQ/L 4.0 MEQ/L Chloride Level 97 MEQ/L 102 MEQ/L Carbon Dioxide Level 23.6 MEQ/L 22.3 MEQ/L Anion Gap 9 MEQ/L 11 MEQ/L Blood Urea Nitrogen 64 MG/DL 46 MG/DL Creatinine 2.01 MG/DL 1.65 MG/DL Estimat Glomerular Filtration 24 ML/MIN 30 ML/MIN Rate Random Glucose 96 MG/DL 81 MG/DL Lactic Acid Level 2.0 mmol/L Calcium Level 10.8 MG/DL 10.4 MG/DL Total Bilirubin 1.3 MG/DL 1.6 MG/DL Aspartate Amino Transf 256 U/L 203 U/L (AST/SGOT) Alanine Aminotransferase 166 U/L 143 U/L (ALT/SGPT) Alkaline Phosphatase 324 U/L 286 U/L Total Creatine Kinase 134 U/L Troponin I LESS THAN 0.02 NG/ML Total Protein 6.6 GM/DL 6.1 GM/DL Albumin 3.0 GM/DL 2.8 GM/DL Thyroid Stimulating Hormone 1.960 uIU/ML 3rd Gen Date/Time Procedure Status Source Growth 11/30/16 17:00 Aerobic Blood Culture Received Blood Peripheral Pending 11/30/16 17:00 Anaerobic Blood Culture Received Blood Peripheral Pending Physical Examination HEENT: YANICKLA r. NECK: Neck is supple, trachea midline CHEST: CTA CARDIAC: RRR ABDOMEN: Soft, tender to palpation in RUQ, bowel sounds present in all 4 quadrants. EXTREMITIES: No clubbing, cyanosis, or edema. SKIN: Normal, no rash. SUPERINTENDENT AMMUNITION STORAGE: A&O x 3. (Emmie Hines) Assessment and Plan Plan ASSESSMENT: -RUQ abdominal pain--Gall bladder US--Distended gallbladder with multiple gallstones and some gallbladder wall thickening. CBD not clearly visualized. Total bilirubin 1.6 -Elevated Liver Tests--AST 203, ALT 143. Renal US--Liver is massively enlarged and scattered nonspecific hepatic masses are suspected. Gallbladder US-- Heterogeneous, enlarged liver characteristic of hepatocellular dysfunction or mild fatty infiltration. Abdomen/Pelvis CT--No acute findings within the abdomen and pelvis. Liver enlarged to 26 cm in length. Pessary present in the lower pelvis. Remote healed left pelvic fractures. Remote granulomatous disease -Generalized weakness -Confusion, intermittent -Dehydration -BEVERLY--Renal US, kidneys and urinary bladder within normal limits. -Hypercalcemia--Ca 10.4 PLAN: -MRCP -Monitor LFTs -Clear liquid diet -General Surgery Consult -Further recommendations to follow based on results of above. Patient seen and examined by Dr. Horton and myself and this note is written on his behalf. (Emmie Hines) Physician Comments Seen and exmained with FIELD TECH, MRCP ordered. GS consult. Monitor labs. Dr. Paul will follow, thank you (Bishop Horton MD) Emmie Hines Dec 01, 2016 11:28 Bishop Horton MD Dec 01, 2016 12:08
--- NOTE | 2016-12-01 13:35 | MB ---
cc: GUILLAUMETRACIEIONA DATE OF CONSULTATION: 12/01/2016. REASON FOR CONSULTATION: Gallstones. REQUESTING PHYSICIAN: Dr. Jordan. HISTORY OF PRESENT ILLNESS: The patient is a 71-year-old female who was admitted to [facility] for weakness, altered mental status and elevated creatinine and liver function tests. The patient apparently was at home, per the daughter, and was becoming more weak and pale and confused and having multiple falls and was therefore was brought to the emergency department. Upon evaluation, the patient was found to have elevated kidney and liver function studies and workup did reveal some gallstones and elevated total bilirubin concerning for possible biliary obstruction. The patient also had acute kidney injury. The patient was admitted to the [facility] and placed on IV fluids and IV antibiotics and has since shown some significant improvement in her kidney function and mental status. Currently the patient denies any abdominal pain other than some vague discomfort in her lower abdomen. The patient is hungry. She denies any nausea or vomiting, fever or chills, night sweats, diarrhea or constipation or any other symptoms. REVIEW OF SYSTEMS: A twelve-point review of systems was gone over with the patient and is negative except for the pertinent positives mentioned above in the history of present illness. PAST MEDICAL HISTORY: 1. Rheumatoid arthritis. 2. Osteoporosis. 3. Hypothyroidism. PAST SURGICAL HISTORY: 1. Uterine sling. 2. Cataract surgery. ALLERGIES: 1. HEPARIN. 2. LATEX. 3. BACLOFEN. MEDICATIONS: 1. Ciprofloxacin. FAMILY HISTORY: Noncontributory. SOCIAL HISTORY: The patient occasionally drinks alcohol, denies tobacco or illicit drug. Lives independently. PHYSICAL EXAMINATION: VITAL SIGNS: Temperature 98.0 degrees, heart rate 111, respiratory rate 17, blood pressure 95/57, 02 saturation 95%. GENERAL: The patient is a pale-appearing acutely ill-appearing elderly female. HEAD, EYES, EARS, NOSE, THROAT: Head is normocephalic and atraumatic. Pupils equal, round and reactive to light. The sclerae are nonicteric. The mucous membranes are moist. NECK: The neck is supple. No jugular venous distention. LUNGS: The lungs are clear to auscultation bilaterally. Nonlabored breathing pattern. HEART: Regular rate and rhythm. The PMI is nondisplaced. ABDOMEN: The abdomen is soft. Subjectively comfortable diffusely with no rebound tenderness. No guarding. No peritonitis. No surgical scars. No hernias. No ascites. No organomegaly. Normal bowel sounds. BACK: No costovertebral angle tenderness. EXTREMITIES: No cyanosis, clubbing or edema. NEUROLOGIC: The patient is oriented x2, follows commands. Moving extremities focally. Cranial nerves II through XII are grossly intact. LABORATORY VALUES: White blood cell count is normal at 6.8. Bilirubin is 1.6, up from 1.3. Elevated transaminases. IMAGING STUDIES: CT scan of the abdomen and pelvis is negative. Ultrasound sound of the gallbladder shows gallbladder wall thickening and stones. ASSESSMENT AND PLAN: The patient is a 71-year-old female with likely transient or a complete biliary obstruction and possible mild or early cholangitis. I do agree with current management with NPO, IV fluids and IV antibiotics. I agree with GI consultation for evaluation of the patient's biliary ducts and drainage and possible liver disease. I had a long discussion with the patient as well as the patient's daughter about surgical management of the disease. If the patient continues to improve clinically and the patient has a draining biliary system, we would in the next 24 to 48 hours consider laparoscopic cholecystectomy on this patient. The risks, benefits, and alternatives were explained to the patient and her daughter in detail and they do agree to undergo this once the patient is feeling better from her possible biliary obstruction. I will defer to gastroenterology to further work up, MRCP or ERCP. Thank you very much for this consultation. I will follow along with the patient. MD BOB Givens/KAPIL /12:53 PM /1:21 PM
--- NOTE | 2016-12-01 14:17 | EKG ---
Date Performed: 11/30/2016 Time Performed: 16:59:19 PTAGE: 71 years EKG: SINUS TACHYCARDIA Compared to previous tracing, sinus rate has increased ABNORMAL RHYTHM EC G PREVIOUS TRACING : 12/18/2015 13.28 DOCTOR: Jorge Hernandez Interpretating Date/Time 12/01/2016 14:16:23
--- NOTE | 2016-12-01 15:41 | RADRPT ---
EXAM DATE/TIME: 12/01/2016 14:55 [facility] COMPARISON: No previous studies available for comparison. INDICATIONS : Obstruction. MEDICAL HISTORY : Arthritis. Osteoporosis. SURGICAL HISTORY : Bladder sling ENCOUNTER: Initial ACUITY: 1 day PAIN SCORE: 5/10 LOCATION: Abdominal pain. TECHNIQUE: Multiplanar, multisequence magnetic resonance imaging of the abdomen was performed. High-resolution 3D dataset was utilized to reconstruct maximum-intensity projection (MIP) images. FINDINGS: They are numerous small lesions present throughout the enlarged liver. These have increased T2 signal measuring up to 1.5 cm in diameter. These are concerning for metastatic disease. Liver is diffusely heterogeneous. The common bile duct is not identified distally and there appears to be a filling defect in the midpo rtion. Differential diagnosis is choledocholithiasis or small mass. There are numerous small gallston es within the gallbladder. Small renal cysts noted. Spleen unremarkable. Trace free fluid. CONCLUSION: 1. Enlarged liver with innumerable small lesions throughout the liver. Primary concern is metastatic disease. Recommend CT exam with contrast using hepatic protocol for possible biopsy planning. 2. Distal common bile duct not clearly visualized with apparent filling defect in the common bile larry t. Differential diagnosis includes choledocholithiasis versus a small neoplasm. Numerous gallstones p resent in gallbladder. Cholo Mejia MD on December 01, 2016 at 15:27 Board Certified Radiologist. This report was verified electronically.
[2016-12-01] MEDS: CIPROFLOXACIN 400 MG PREMIX 200 ML IV SCH (20:29)
[2016-12-02 04:29] VITALS: BP 110/63; PULSE 106; RESP 18; TEMP 97.1; O2SAT 95
[2016-12-02] MEDS: LEVOTHYROXINE SODIUM 112 MCG TAB PO SCH (05:17)
[2016-12-02] MEDS: MORPHINE SULFATE 4 MG/ML INJ IV PRN ×2 (06:27→22:17)
[2016-12-02 07:36] VITALS: BP 99/66; PULSE 103; RESP 18; TEMP 97.3; O2SAT 94
[2016-12-02 07:41] LABS: AUTOMATED NEUTROPHIL # 6.7 TH/MM3 (1.8-7.7); BASOPHIL % 0.3 % (0.0-2.0); EOSINOPHIL # 0.1 TH/MM3 (0-0.4); HEMATOCRIT 34.3 % (35.0-46.0); HEMO FLAGS DIFF FINAL; LYMPH % 14.5 % (9.0-44.0); LYMPHOCYTE # 1.3 TH/MM3 (1.0-4.8); MEAN CELL VOLUME 97.7 FL (80.0-100.0); MEAN CORPUSCULAR HEMOGLOBIN 33.7 PG (27.0-34.0); MEAN CORPUSCULAR HGB CONC 34.5 % (32.0-36.0); MONO % 7.4 % (0.0-8.0); NEUT % 76.8 % (16.0-70.0); PLATELET COUNT 178 TH/MM3 (150-450); RED BLOOD COUNT 3.51 MIL/MM3 (4.00-5.30); RED CELL DISTRIBUTION WIDTH 13.8 % (11.6-17.2); WHITE BLOOD COUNT 8.8 TH/MM3 (4.0-11.0)
[2016-12-02 07:52] LABS: ALKALINE PHOSPHATASE 293 U/L (45-117); ALT (GPT) 121 U/L (10-53); ANION GAP 10 MEQ/L (5-15); AST (GOT) 172 U/L (15-37); BICARBONATE 20.6 MEQ/L (21.0-32.0); BLOOD UREA NITROGEN 24 MG/DL (7-18); CHLORIDE 106 MEQ/L (98-107); GLOMERULAR FILTRATION RATE 48 ML/MIN (>89); POTASSIUM 3.6 MEQ/L (3.5-5.1); SODIUM (NA) 137 MEQ/L (136-145); TOTAL BILIRUBIN ADULT 1.4 MG/DL (0.2-1.0)
[2016-12-02] MEDS: SODIUM CHLORIDE 0.9% FLUSH 5 ML FLUSH FLUSH SCH ×4 (09:00→19:45)
--- NOTE | 2016-12-02 09:34 | HHI.GIFU ---
Subjective Remarks Resting in bed. No n/v at this time. Did have some abdominal pain overnight, but improved with pain meds. Daughter at bedside Objective Vitals I&O Vital Signs Date Time Temp Pulse Resp B/P Pulse Ox O2 Delivery O2 Flow Rate FiO2 12/02/16 07:36 97.3 103 18 99/66 94 12/02/16 04:29 97.1 106 18 110/63 95 12/01/16 23:25 97.1 98 18 115/60 96 12/01/16 19:37 97.2 110 18 101/62 96 12/01/16 17:04 107 17 105/68 95 12/01/16 12:16 97.4 71 18 92/60 97 I/O 12/01/16 12/01/16 12/01/16 12/02/16 12/02/16 12/02/16 07:00 15:00 23:00 07:00 15:00 23:00 Intake Total 1100 ml Output Total 0 ml Balance 1100 ml Intake Oral 500 ml IV Total 600 ml Output Stool Total 0 ml # Voids 3 Laboratory Laboratory Tests Test 12/02/16 06:39 White Blood Count 8.8 Red Blood Count 3.51 Hemoglobin 11.9 Hematocrit 34.3 Mean Corpuscular Volume 97.7 Mean Corpuscular Hemoglobin 33.7 Mean Corpuscular Hemoglobin 34.5 Concent Red Cell Distribution Width 13.8 Platelet Count 178 Mean Platelet Volume 8.7 Neutrophils (%) (Auto) 76.8 Lymphocytes (%) (Auto) 14.5 Monocytes (%) (Auto) 7.4 Eosinophils (%) (Auto) 1.0 Basophils (%) (Auto) 0.3 Neutrophils # (Auto) 6.7 Lymphocytes # (Auto) 1.3 Monocytes # (Auto) 0.6 Eosinophils # (Auto) 0.1 Basophils # (Auto) 0.0 CBC Comment DIFF FINAL Differential Comment Sodium Level 137 Potassium Level 3.6 Chloride Level 106 Carbon Dioxide Level 20.6 Anion Gap 10 Blood Urea Nitrogen 24 Creatinine 1.11 Estimat Glomerular Filtration 48 Rate Random Glucose 77 Calcium Level 10.0 Total Bilirubin 1.4 Aspartate Amino Transf 172 (AST/SGOT) Alanine Aminotransferase 121 (ALT/SGPT) Alkaline Phosphatase 293 Total Protein 6.0 Albumin 2.7 Date/Time Procedure Status Source Growth 11/30/16 17:00 Aerobic Blood Culture - Preliminary Resulted Blood Peripheral NO GROWTH IN 1 DAY 11/30/16 17:00 Anaerobic Blood Culture - Preliminary Resulted Blood Peripheral NO GROWTH IN 1 DAY Imaging Last Impressions Cholangiopancreatography MRI 12/01/16 Signed Impressions: Service Date/Time: Thursday, December 01, 2016 14:55 - CONCLUSION: 1. Enlarged liver with innumerable small lesions throughout the liver. Primary concern is metastatic disease. Recommend CT exam with contrast using hepatic protocol for possible biopsy planning. 2. Distal common bile duct not clearly visualized with apparent filling defect in the common bile duct. Differential diagnosis includes choledocholithiasis versus a small neoplasm. Numerous gallstones present in gallbladder. Cholo Mejia MD Head CT 11/30/161647 Signed Impressions: Service Date/Time: Wednesday, November 30, 2016 17:31 - CONCLUSION: 1. No acute intracranial abnormalities. Cholo Mejia MD Chest X-Ray 11/30/161647 Signed Impressions: Service Date/Time: Wednesday, November 30, 2016 17:00 - CONCLUSION: 1. Stable basilar lung scarring. No significant effusion. No pneumothorax. Cholo Mejia MD Renal Ultrasound 11/30/16 Signed Impressions: Service Date/Time: Wednesday, November 30, 2016 23:44 - CONCLUSION: Ultrasound appearance of the kidneys and urinary bladder within normal limits. No obstructive uropathy or other acute abnormality demonstrated. Liver is massively enlarged and scattered nonspecific hepatic masses are suspected. Nikhil Tim MD Gall Bladder Ultrasound 11/30/16 Signed Impressions: Service Date/Time: Wednesday, November 30, 2016 18:56 - CONCLUSION: 1. Heterogeneous, enlarged liver characteristic of hepatocellular dysfunction or mild fatty infiltration. Probable hemangioma in right lobe. Distended gallbladder with multiple gallstones and some gallbladder wall thickening. Common bile duct not clearly visualized. Cholo Mejia MD Abdomen/Pelvis CT 11/30/16 Signed Impressions: Service Date/Time: Wednesday, November 30, 2016 19:52 - CONCLUSION: 1. No acute findings within the abdomen and pelvis. Liver enlarged to 26 cm in length. Pessary present in the lower pelvis. Remote healed left pelvic fractures. Remote granulomatous disease. Cholo Mejia MD Physical Exam HEENT: Normocephalic; atraumatic; no jaundice. CHEST: Chest is clear to auscultation and percussion. CARDIAC: RRR ABDOMEN: Soft, nondistended, nontender; hepatosplenomegaly; bowel sounds are present in all four quadrants. EXTREMITIES: No clubbing, cyanosis, or edema. SKIN: Normal; no rash; no jaundice. 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 Assessment and Plan Plan ASSESSMENT: - Biliary obstruction/Elevated LFTs. Abdomen/Pelvis CT (11/30/16)------> 1. No acute findings within the abdomen and pelvis. Liver enlarged to 26 cm in length. Pessary present in the lower pelvis. Remote healed left pelvic fractures. Remote granulomatous disease. Gall Bladder Ultrasound (11/30/16)-----> 1. Heterogeneous, enlarged liver characteristic of hepatocellular dysfunction or mild fatty infiltration. Probable hemangioma in right lobe. Distended gallbladder with multiple gallstones and some gallbladder wall thickening. Common bile duct not clearly visualized. MRCP (12/01/16)----> 1. Enlarged liver with innumerable small lesions throughout the liver. Primary concern is metastatic disease. Recommend CT exam with contrast using hepatic protocol for possible biopsy planning. 2. Distal common bile duct not clearly visualized with apparent filling defect in the common bile duct. Differential diagnosis includes choledocholithiasis versus a small neoplasm. Numerous gallstones present in gallbladder. LFT. T. Bili 1.4, AST 172, ALT 121, Alk Phosph 293. D/W patient/daughter ERCP with possible stent placement- they would like to proceed. - Liver lesions. MRCP with enlarged liver with innumerable small lesions throughout the liver, concerning for metastatic disease. Pt reports a 30 lb weight loss since August, decreased appetite. Both parents from Pancreatic cancer, sister from uterine cancer. Will get tumor markers, afp, cea, ca19-9. Oncology consulted. Depending on ERCP, may need liver biopsy. - Cholelithiasis/GB wall thickening. GS following, awaiting Dr. Guevara' recommendations. - Decreased appetite, abnormal weight loss, 30 lbs since August. - Abdominal pain. Controlled. - BEVERLY/Dehydration. Improved. Creat 1.11 - Hypercalcemia--Ca 10.4 per primary PLAN: - Plan for ercp with possible stent placement - Obtain consents - NPO - CEA, AFP, Ca19-9 - Monitor LFTs - Await oncology evaluation - GS following - Supportive care - Further recommendations to follow based on results of above. - Patient seen and examined by Dr. Paul and myself and this note is written on her behalf. Mihaela Rodriguez Dec 02, 2016 09:34
[2016-12-02] MEDS: PANTOPRAZOLE SOD 20 MG DELAYED RELEASE TAB PO SCH (09:42)
[2016-12-02] MEDS: INFLUENZA VIRUS VACCINE (QUADRIVALENT) 0.5 ML SYR IM ONE ×2 (09:49→10:00)
--- NOTE | 2016-12-02 10:33 | HHI.PR ---
Subjective Remarks Follow up for RUQ abdominal pain, biliary obstruction, cholelithiasis with suspected choledocholithiasis. The patient received IV morphine an hour prior to evaluation, but now denies any abdominal pain. No nausea/vomiting overnight. No fevers/chills. She continues to be pleasantly confused. Discussed extensively with the daughter at bedside, informed of the liver lesions concern for metastatic disease, patient's daughter requests Dr. Guevara to see her. Objective Vitals Vital Signs Date Time Temp Pulse Resp B/P Pulse Ox O2 Delivery O2 Flow Rate FiO2 12/02/16 07:36 97.3 103 18 99/66 94 12/02/16 04:29 97.1 106 18 110/63 95 12/01/16 23:25 97.1 98 18 115/60 96 12/01/16 19:37 97.2 110 18 101/62 96 12/01/16 17:04 107 17 105/68 95 12/01/16 12:16 97.4 71 18 92/60 97 I/O 12/01/16 12/01/16 12/01/16 12/02/16 12/02/16 12/02/16 07:00 15:00 23:00 07:00 15:00 23:00 Intake Total 1100 ml Output Total 0 ml Balance 1100 ml Intake Oral 500 ml IV Total 600 ml Output Stool Total 0 ml # Voids 3 Result Diagram: 12/02/16 0639 12/02/16 0639 Imaging Last Impressions Cholangiopancreatography MRI 12/01/16 0000 Signed Impressions: Service Date/Time: Thursday, December 01, 2016 14:55 - CONCLUSION: 1. Enlarged liver with innumerable small lesions throughout the liver. Primary concern is metastatic disease. Recommend CT exam with contrast using hepatic protocol for possible biopsy planning. 2. Distal common bile duct not clearly visualized with apparent filling defect in the common bile duct. Differential diagnosis includes choledocholithiasis versus a small neoplasm. Numerous gallstones present in gallbladder. Cholo Mejia MD Head CT 11/30/168 Signed Impressions: Service Date/Time: Wednesday, November 30, 2016 17:31 - CONCLUSION: 1. No acute intracranial abnormalities. Cholo Mejia MD Chest X-Ray 11/30/161647 Signed Impressions: Service Date/Time: Wednesday, November 30, 2016 17:00 - CONCLUSION: 1. Stable basilar lung scarring. No significant effusion. No pneumothorax. Cholo Mejia MD Renal Ultrasound 11/30/16 Signed Impressions: Service Date/Time: Wednesday, November 30, 2016 23:44 - CONCLUSION: Ultrasound appearance of the kidneys and urinary bladder within normal limits. No obstructive uropathy or other acute abnormality demonstrated. Liver is massively enlarged and scattered nonspecific hepatic masses are suspected. Nikhil Tim MD Gall Bladder Ultrasound 11/30/16 Signed Impressions: Service Date/Time: Wednesday, November 30, 2016 18:56 - CONCLUSION: 1. Heterogeneous, enlarged liver characteristic of hepatocellular dysfunction or mild fatty infiltration. Probable hemangioma in right lobe. Distended gallbladder with multiple gallstones and some gallbladder wall thickening. Common bile duct not clearly visualized. Cholo Mejia MD Abdomen/Pelvis CT 11/30/16 Signed Impressions: Service Date/Time: Wednesday, November 30, 2016 19:52 - CONCLUSION: 1. No acute findings within the abdomen and pelvis. Liver enlarged to 26 cm in length. Pessary present in the lower pelvis. Remote healed left pelvic fractures. Remote granulomatous disease. Cholo Mejia MD Objective Remarks GENERAL: Well-developed elderly female patient in [facility]. Pleasantly confused. SKIN: Warm and dry. HEAD: Atraumatic. Normocephalic. EYES: Pupils equal and round. No scleral icterus. No injection or drainage. ENT: No nasal bleeding or discharge. Mucous membranes slightly dry. NECK: Trachea midline. CARDIOVASCULAR: Regular rate and rhythm. No murmur appreciated. RESPIRATORY: No accessory muscle use. Clear to auscultation. Breath sounds equal bilaterally. GASTROINTESTINAL: Abdomen soft, nondistended, nontender today. Palpable liver. Normoactive bowel sounds x4. MUSCULOSKELETAL: Extremities without clubbing, cyanosis, or edema. No obvious deformities. NEUROLOGICAL: Awake and alert. No obvious cranial nerve deficits. Motor grossly within normal limits. Normal speech. PSYCHIATRIC: Appropriate mood and affect; insight and judgment fair. Medications and IVs Current Medications Medications (Trade) Dose Ordered Sig/Roland Route Start Time Stop Time Status Last Admin IV Flush 2 ml 2 ml UNSCH PRN IVF 11/30/16 17:00 (NS 1000 ml Inj) 1,000 ml @ 100 mls/hr Q10H IV 11/30/16 19:07 12/01/16 20:30 (NS Flush) 2 ml UNSCH PRN FLUSH 11/30/16 19:15 (NS Flush) 2 ml BID FLUSH 11/30/16 21:00 12/02/16 09:43 (Zofran Inj) 4 mg Q6H PRN IVP 11/30/16 19:15 (Dulcolax Supp) 10 mg DAILY PRN VA 11/30/16 19:15 11/30/16 22:29 (Tylenol) 650 mg Q6H PRN PO 11/30/16 19:15 (Ashton 5-325 Mg) 1 tab Q4H PRN PO 11/30/16 19:15 11/30/16 19:42 (Morphine Inj) 2 mg Q3H PRN IV 11/30/16 19:15 12/02/16 06:27 (Synthroid) 112 mcg DAILY@06 PO 12/01/16 06:00 12/02/16 05:17 Pantoprazole Sodium 20 mg 20 mg DAILY PO 12/01/16 09:00 12/02/16 09:42 (NS 1000 ml Inj) 1,000 ml @ 100 mls/hr Q10H IV 11/30/16 19:12 (NS Flush) 2 ml UNSCH PRN FLUSH 11/30/16 19:15 (NS Flush) 2 ml BID FLUSH 11/30/16 21:00 12/01/16 20:30 Acetaminophen 650 mg 650 mg Q4H PRN PO 11/30/16 19:15 (Cipro 400 Mg Premix) 200 ml @ 200 mls/hr Q24H IV 11/30/16 21:00 12/01/16 20:29 A/P Problem List: (1) Generalized weakness ICD Code: R53.1 Status: Acute (2) BEVERLY (acute kidney injury) ICD Code: N17.9 Status: Acute (3) Dehydration ICD Code: E86.0 Status: Acute (4) Hypercalcemia ICD Code: E83.52 Status: Acute (5) UTI (urinary tract infection) ICD Code: N39.0 Status: Acute (6) Elevated LFTs ICD Code: R94.5 Status: Acute Assessment and Plan 71-year-old female with a PMH of Rheumatoid Arthritis, Osteoporosis and Hypothyroidism who was brought to the ER secondary to generalized weakness and intermittent confusion noted by Daughter. Cholelithiasis, Elevated LFTs with Biliary Obstruction: Possible cholecystitis vs choledocholithiasis. RUQ abdominal pain. Imaging and Labs Reviewed- GB US showed Distended GB with multiple gallstones and some gallbladder wall thickening; CBD not clearly visualized. Total bilirubin 1.3, AST 203, ALT 143. CT abdomen with no acute findings, enlarged liver 26cm. Renal U/S showed Liver is massively enlarged and scattered nonspecific hepatic masses are suspected. MRCP 12/01 showed Enlarged liver with innumerable small lesions throughout the liver; Primary concern is metastatic disease; Distal common bile duct not clearly visualized with apparent filling defect in the CBD; DDx includes choledocholithiasis versus a small neoplasm; Numerous gallstones. -Consult general surgery, discussed with Dr. Small, may proceed with cholecystectomy later this week, consider liver biopsy at this time -Consult gastroenterology -Clear liquid diet -monitor LFTs -plan for ERCP with possible stent placement -pain control with Ashton and IV morphine prn Liver Lesions: seen on MRCP as above, concern for metastatic disease -gastroenterology on board as above -oncology consulted, patient's daughter specifically requests for Dr. Guevara, well known to the family BEVERLY: Creatinine 2.01, previously 0.63 on 12/18/15, U/a negative for UTI, however on Bactrim since per PCP for UTI. IVF for hydration, repeat labs show continued improvement, Cr 1.11 today. Avoid nephrotoxins. UTI, Failed Outpatient: U/a currently negative, however possibly due to recent antibiotic use, s/p Blood Cultures in ER, started on Cipro IV for empiric treatment of persistent UTI despite negative U/a. Dehydration: Secondary to above, decreased PO intake per Daughter. +dry mucous membranes on exam, BEVERLY, hypercalcemia. IVF for hydration. Repeat labs improving, continue to monitor. Hypercalcemia: Ca 10.8, secondary to above. IVF, repeat Ca 10.0 today, continue to monitor. Generalized Weakness: w/ recurrent falls x1-2 months per family, possibly related to underlying UTI/infection. Consult PT for shaan/tx, may need rehab. DVT Prophylaxis: SCD/Teds. Written by Luci Perera, acting as scribe for Dr. Jordan on 12/02/16 at 08:15. The documentation accurately reflects the work performed [id number] by me Dr. Jordan on 12/02/16 at 08:15. Luci Perera PA-C Dec 02, 2016 10:32 Zofia Jordan MD Dec 02, 2016 14:33
[2016-12-02] MEDS: SODIUM CHLOR 0.9% 1000 ML INJ 1,000 ML IV SCH ×4 (11:07→20:38)
[2016-12-02] MEDS: ACETAMINOPHEN/HYDROcodone 325 MG/5 MG TAB PO PRN ×2 (11:45→19:50)
[2016-12-02 12:18] VITALS: BP 125/67; PULSE 104; RESP 16; TEMP 97; O2SAT 97
[2016-12-02] MEDS ORDERED: IOHEXOL 350 MG/ML 100 ML BTL (for RAD DIAG) OTHER ONE (16:23)
[2016-12-02] MEDS ORDERED: SINCALIDE 5 MCG/5 ML VIAL IV ONE (17:15)
--- NOTE | 2016-12-02 18:11 | RADRPT ---
EXAM DATE/TIME: 12/02/2016 17:16 [facility] COMPARISON: No previous studies available for comparison. INDICATIONS : Obstruction. FLUORO TIME: 5.03 minutes IMAGE COUNT: CONTRAST: Instilled by Ordering Physician MEDICAL HISTORY : Cardiovascular disease. Hypertension. Deep venous thrombosis.COPD. Hiatal hernia. SURGICAL HISTORY : Uterus prolapse surgery. ENCOUNTER: Initial ACUITY: 1 day PAIN SCORE: Non-responsive. LOCATION: all quadrants. FINDINGS: An ERCP was performed by the ordering physician. The images demonstrate a normal appearance of the central portion of the pancreatic duct. I believe I do see portions of the biliary tree with the central common hepatic duct and possibly the cystic larry t and portions of the intrahepatic biliary tree. I do not see overt dilation of the visualized ducts at the CBD is not definitively identified on any of the images provided. CONCLUSION: ERCP as above. Richard Frost MD on December 02, 2016 at 17:59 Board Certified Radiologist. This report was verified electronically.
[2016-12-02] MEDS ORDERED: PROPOFOL 200 MG/20 ML AMP IV ONE (18:17)
[2016-12-02] MEDS: CIPROFLOXACIN 400 MG PREMIX 200 ML IV SCH (19:45)
[2016-12-02 21:09] VITALS: BP 104/62; PULSE 99; RESP 18; TEMP 96.9; O2SAT 96
--- NOTE | 2016-12-02 22:04 | MB ---
cc: ROWDY TAYLOR M.D. DATE OF CONSULTATION 12/02/2016 REASON FOR CONSULTATION Consult requested by Dr. Jordan for evaluation of multiple liver lesions. HISTORY OF PRESENT ILLNESS Erma is a 71-year-old pleasant female. She recently presented to her primary physician, Dr. Kim for generalized weakness and falls and confusion. She also has a history of anorexia with weight loss of 30 pounds over the last 1-2 months. She was brought into the emergency room. She was complaining of right upper quadrant pain. Her blood tests revealed acute renal failure with a creatinine of 2.1. Also liver enzymes were elevated and calcium was elevated. She had a CT scan of the head and chest x-ray, both came back negative. She had an ultrasound of the right upper quadrant which showed distended gallbladder with gallstones. The CT scan of the abdomen and pelvis revealed enlarged liver with hepatic masses. GI and general surgery were consulted. Initially thought was to remove the gallbladder but she is found to have multiple liver lesions. The patient underwent ERCP today by Dr. Horton. I do not have the report available but according to the patient's daughter who works at the hospital, indicated that Dr. Horton found a solid mass in the bile duct and he was unable to place a stent. The patient just came back from the ERCP procedure and I am seeing her in the emergency room. The patient appears to be quite debilitated, she is confused. She has been complaining of abdominal pain mostly on the right side. A complete review of systems is not possible due to her mental status. PAST MEDICAL HISTORY 1. Rheumatoid arthritis. 2. Hypothyroidism. 3. Osteoporosis. PAST SURGICAL HISTORY 1. Cataract. 2. Bladder suspension surgery. ALLERGIES HEPARIN, LATEX, BACLOFEN. MEDICATIONS Are: 1. Protonix. 2. Synthroid. 3. Cipro. 4. Zofran. FAMILY HISTORY Both parents from pancreatic cancer. The patient has five sisters, one of the sister has a uterine cancer. The patient has three brothers, all two from heart and one from intestinal cancer. The patient has one daughter who works in this hospital. The patient has one son who is a PA with [employer]. SOCIAL HISTORY The patient is . She does not smoke cigarettes, does not drink alcohol. PHYSICAL EXAMINATION GENERAL: This is a well-developed, chronically ill appearing white female in no apparent distress. VITAL SIGNS: Temperature 97, heart rate 104, blood pressure 125/67. O2 saturation is 97%. HEENT: Pupils equal, round, reactive to light and accommodation. Extraocular muscles intact. Sclerae is icteric. No oral lesions noted. NECK: No lymphadenopathy noted. LUNGS: Clear. No wheezes, rhonchi or rales. HEART: Regular rate and rhythm. ABDOMEN: Tender in the right upper quadrant. EXTREMITIES: No pedal edema. NEUROLOGICAL: Awake and alert, oriented times two. SKIN: No significant lesions noted. ASSESSMENT Multiple liver lesions with obstructive jaundice and elevated CA19-9 of 16,000. 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 PLAN I have reviewed her records and I have discussed with the patient, daughter and son-in-law at the bedside. I have also discussed with the patient's son over the phone who is a PA. 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 Her liver enzymes are elevated. Her AST is 172. Her ALT is 121, alkaline phosphatase 293. Total bilirubin is 1.4. Tumor markers were ordered earlier. The alpha-fetoprotein is normal at 7.4. The CEA is high at 102 but the CA19-9 is extremely high at 16,314. 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 This is not curable but it is treatable. One could offer her palliative chemotherapy with Abraxane and Gemzar. However, the patient is very debilitated and I do not think that she will be able to handle the chemotherapy given her current clinical situation. I have discussed with them that if they want we can schedule the biopsy of the liver mass with interventional radiologist. But the family does not want to put her through all this. Also they do not want to do the percutaneous drainage of the bile duct. I recommended the best supportive care with hospice. They have all agreed with that. I have placed a consult for Hospice for best supportive care. The son wanted her to be placed at the [facility] if it is possible. Her prognosis is extremely poor and I expect her to live maybe up to a few weeks at the most unfortunately. The patient's change in mental status is metabolic. There is no evidence of brain metastasis. Her calcium was high 10.4 when she came in . She was in acute renal failure . Both certainly can affect the mental status. Also her liver enzymes are high, so she could have hepatic encephalopathy. The patient's son-in-law knows Dr. Guevara well. They are requesting if Dr. Guevara can stop by and see and talk to them. I told them that Dr. Guevara is off today but I will certainly pass on the message to him and see if he is able to spend some time with them. Thank you for asking my opinion. MD EVANGELINA Zapata/YOLY /6:51 PM /9:41 PM MTDD
[2016-12-02 22:23] VITALS: RESP 16
== END 2016-12-02 22:45 | disposition hospice, inpatient (51) | DRG 435 ==
LOC: NEPC 16:22 → NEDA 18:51 → OBSVTOIN 19:10 → NEPHCDU 20:44
PROVIDERS: ADMIT Hospitalist; ATTEND Hospitalist
PROC: 0FJB8ZZ Inspection of Hepatobiliary Duct, Via Natural or Artificial Opening Endoscopic (ICD-10-PCS; principal; 2016-12-02 16:10)
DX: C22.1 Intrahepatic bile duct carcinoma (principal); K83.1 Obstruction of bile duct; N17.9 Acute kidney failure, unspecified; C78.7 Secondary malignant neoplasm of liver and intrahepatic bile duct; N39.0 Urinary tract infection, site not specified; M06.9 Rheumatoid arthritis, unspecified; E83.52 Hypercalcemia; E86.0 Dehydration; R16.0 Hepatomegaly, not elsewhere classified; R94.5 Abnormal results of liver function studies; K80.20 Calculus of gallbladder without cholecystitis without obstruction; M81.0 Age-related osteoporosis without current pathological fracture; E03.9 Hypothyroidism, unspecified; R41.0 Disorientation, unspecified; Z80.0 Family history of malignant neoplasm of digestive organs; Z80.8 Family history of malignant neoplasm of other organs or systems; Z91.81 History of falling
CPT/HCPCS: 70450; 71010; 74176; 74181; 74330; 76377; 76705; 76775; 76937; 80053; 81001; 82105; 82378; 82550; 83605; 84443; 84484; 85025; 86301; 87040; 90686; 93005; 96361; 96374; J0744; J2270; J2805; J7030; J7040; P9612; Q2038; Q9967